=== PATIENT | female | born 1980 | race Caucasian/White ===

== ENCOUNTER 2017-03-02 19:16 | Emergency (ER) | payer MEDICAID ==
[~2017-03-02] VITALS: Ht 160 cm; Wt 60.2 kg
[~2017-03-02 19:16] MED LIST: GABA600T2 PO; HYDR1TAB12 PO
[2017-03-02 20:05] LABS: BLOOD UREA NITROGEN 18 mg/dL (7-18)
[2017-03-02 20:17] LABS: IS PT STATUS REG ER OR PRE ER? YES
[2017-03-02 20:27] VITALS: BP 110/67
== END 2017-03-02 20:42 ==
LOC: ED 20:36
DX: J20.9 Acute bronchitis, unspecified (principal); Z85.89 Personal history of malignant neoplasm of other organs and systems
CPT/HCPCS: 36415; 71020; 80048; 82040; 84484; 84703; 85025; 93005; 99285